=== PATIENT | male | born 1965 ===

== ENCOUNTER 2018-01-10 16:40 | Outpatient (REF) | payer BC, SELFPAY ==
[2018-01-10 21:55] LABS: Prot/Crea Ur Ratio 0.06
[2018-01-11 12:00] LABS: Microalb ug/mg Crea 9.5 ug/mg Cr
== END 2018-01-10 17:00 ==
LOC: NCHCN 16:40
PROVIDERS: PCP Registered Nurse; Visit Provider Registered Nurse
DX: I10 Essential (primary) hypertension (principal)
CPT/HCPCS: 82043; 82565; 82570; 84156

== ENCOUNTER 2018-01-18 16:56 | Outpatient (REF) | payer BC, SELFPAY ==
[2018-01-18 21:30] LABS: ALT 105 U/L (12-78); AST 59 U/L (15-37); Albumin 4.3 g/dL (3.4-5.0); Alkaline Phosphatase 95 U/L (46-116); Anion Gap 11.6 mmol/L (3-11); BUN 11 mg/dL (7-18); Bilirubin, Total 0.3 mg/dL (0.2-1.0); CO2 23.4 mmol/L (21.0-32.0); CREATININE 1.02 mg/dL (0.70-1.30); Chloride 102 mmol/L (98-107); Cholesterol 294 mg/dL (50-200); Glucose 90 mg/dL (70-100); HDL Cholesterol 48 mg/dL (40-60); LDL CHOLESTEROL 197 mg/dL (<100); Potassium 4.2 mmol/L (3.5-5.1); Sodium 137 mmol/L (136-145); Total Protein 8.4 g/dL (6.4-8.2); Triglyceride 398 mg/dL (30-150)
== END 2018-01-18 17:16 ==
LOC: NCHCN 16:56
PROVIDERS: PCP Registered Nurse; Visit Provider Registered Nurse
DX: I10 Essential (primary) hypertension (principal); F10.10 Alcohol abuse, uncomplicated
CPT/HCPCS: 80053; 80061; 83721

== ENCOUNTER 2020-06-12 19:26 | Outpatient (REF) | payer BC, SELFPAY ==
[2020-06-12 22:52] LABS: ALT 104 U/L (16-63); AST 60 U/L (15-37); Albumin 4.3 g/dL (3.4-5.0); Alkaline Phosphatase 113 U/L (46-116); BUN 19 mg/dL (7-18); Bilirubin, Total 0.5 mg/dL (0.2-1.0); CREATININE 1.2 mg/dL (0.70-1.30); Chloride 102 mmol/L (98-107); Glucose 142 mg/dL (74-106); Potassium 3.5 mmol/L (3.5-5.1); Sodium 140 mmol/L (136-145); Total Protein 8.5 g/dL (6.4-8.2)
== END 2020-06-12 19:27 | disposition home or self-care (01) ==
LOC: NCHCN 19:26
PROVIDERS: PCP Registered Nurse; Visit Provider Nurse Practitioner Family
DX: I10 Essential (primary) hypertension (principal); Z72.89 Other problems related to lifestyle
CPT/HCPCS: 80053

== ENCOUNTER 2021-09-08 18:32 | Outpatient (REF) | payer BC, SELFPAY ==
[2021-09-08 22:25] LABS: Hemoglobin A1C 5.7 % (<5.7)
[2021-09-08 22:30] LABS: ALT 56 U/L (16-63); AST 32 U/L (15-37); Albumin 4.1 g/dL (3.4-5.0); Alkaline Phosphatase 121 U/L (46-116); Anion Gap 11.9 mmol/L (3-11); BUN 21 mg/dL (7-18); Bilirubin, Total 0.3 mg/dL (0.2-1.0); CO2 26.1 mmol/L (21.0-32.0); Calcium 8.5 mg/dL (8.5-10.1); Chloride 100 mmol/L (98-107); Cholesterol 303 mg/dL (<200); Glucose 104 mg/dL (74-106); HDL Cholesterol 50 mg/dL (40-60); Potassium 3.4 mmol/L (3.5-5.1); Sodium 138 mmol/L (136-145); Total Protein 8.2 g/dL (6.4-8.2); Triglyceride 545 mg/dL (<150)
[2021-09-08 22:56] LABS: LDL CHOLESTEROL 178 mg/dL (<100)
[2021-09-10 10:20] LABS: Hepatitis B Surface Ag Negative (Negative)
[2021-09-10 11:13] LABS: HBs Antibody, Quant <3.1 mIU/mL (See Note); Hepatitis B Surface Ab Negative (See Note)
[2021-09-10 11:55] LABS: Hep B Core Antibody Negative (Negative)
[2021-09-10 13:40] LABS: Hepatitis C Ab w Rflx HCV PCR Negative (Negative)
== END 2021-09-08 18:33 | disposition home or self-care (01) ==
LOC: NCHCN 18:32
PROVIDERS: PCP Registered Nurse; Visit Provider Nurse Practitioner Family
DX: R73.9 Hyperglycemia, unspecified (principal); E78.5 Hyperlipidemia, unspecified; R79.89 Other specified abnormal findings of blood chemistry; I10 Essential (primary) hypertension; F10.10 Alcohol abuse, uncomplicated
CPT/HCPCS: 80053; 80061; 83721; 86704; 86706; 86803; 87340; 83036

== ENCOUNTER 2023-10-04 18:44 | Outpatient (REF) | payer BC, SELFPAY ==
[2023-10-04 22:10] LABS: ALT 93 U/L (16-63); AST 65 U/L (15-37); Albumin 4.1 g/dL (3.4-5.0); Alkaline Phosphatase 120 U/L (46-116); Anion Gap 11.2 mmol/L (3-11); BUN 25 mg/dL (7-18); Bilirubin, Total 0.5 mg/dL (0.2-1.0); CO2 25.8 mmol/L (21.0-32.0); CREATININE 1.2 mg/dL (0.70-1.30); Calcium 8.6 mg/dL (8.5-10.1); Chloride 103 mmol/L (98-107); Estimated GFR 69.23 (mL/min/1.73m2); FREE T4 0.96 ng/dL (0.76-1.46); Glucose 151 mg/dL (74-106); Magnesium 2.1 mg/dL (1.8-2.4); Sodium 140 mmol/L (136-145); TSH 1.12 uIU/Ml (0.36-3.74); Total Protein 8.5 g/dL (6.4-8.2); Uric Acid 10.8 mg/dL (3.5-7.2)
[2023-10-04 22:22] LABS: Calculated LDL 108 mg/dL (<100); Cholesterol 236 mg/dL (<200); HDL Cholesterol 52 mg/dL (40-60); Triglyceride 381 mg/dL (<150)
== END 2023-10-04 18:45 | disposition home or self-care (01) ==
LOC: NCHCN 18:44
PROVIDERS: PCP Registered Nurse; Visit Provider Nurse Practitioner Family
DX: I10 Essential (primary) hypertension (principal); R73.03 Prediabetes; M10.9 Gout, unspecified; E78.5 Hyperlipidemia, unspecified
CPT/HCPCS: 80053; 80061; 83036; 83735; 84439; 84443; 84550

== ENCOUNTER 2024-10-13 11:39 | Outpatient (REF) | payer SELFPAY ==
[2024-10-13 15:14] LABS: Hemoglobin A1C 6.1 % (<5.7)
[2024-10-13 15:25] LABS: ALT 81 U/L (16-63); AST 57 U/L (15-37); Albumin 4.1 g/dL (3.4-5.0); Alkaline Phosphatase 108 U/L (46-116); Anion Gap 10.4 mmol/L (3-11); BUN 15 mg/dL (7-18); Bilirubin, Total 0.5 mg/dL (0.2-1.0); CO2 28.6 mmol/L (21.0-32.0); CREATININE 0.9 mg/dL (0.70-1.30); Chloride 103 mmol/L (98-107); Estimated GFR 97.17 (mL/min/1.73m2); Glucose 112 mg/dL (74-106); Potassium 3.7 mmol/L (3.5-5.1); Sodium 142 mmol/L (136-145); Total Protein 9.2 g/dL (6.4-8.2); Uric Acid 9.2 mg/dL (3.5-7.2)
[2024-10-13 15:26] LABS: COMMENT (LAB VIEW ONLY) 106.18 mg/dL; Microalb ug/mg Crea 10.6 ug/mg Cr
[2024-10-13 16:06] LABS: Calculated LDL 170 mg/dL (<100); Cholesterol 264 mg/dL (<200); HDL Cholesterol 60 mg/dL (>or=40); Triglyceride 174 mg/dL (<150)
== END 2024-10-13 11:40 | disposition home or self-care (01) ==
LOC: NCHCN 11:39
PROVIDERS: PCP Registered Nurse; Visit Provider Nurse Practitioner Family
DX: R73.03 Prediabetes (principal); M10.9 Gout, unspecified; E78.5 Hyperlipidemia, unspecified; I10 Essential (primary) hypertension
CPT/HCPCS: 80053; 80061; 82043; 82570; 83036; 84550